=== PATIENT | female | born 1980 | race African-American/Black ===

== ENCOUNTER 2018-11-05 08:40 | Inpatient (IN) | payer BC, OTHER ==
[~2018-11-05 08:40] MED LIST: CITRIC ACID/SODIUM CITRATE 30 ML UNIT-DOSE CUP PO ONE; ELECTROLYTE-148 SOLN 1,000 ML IV ONE
[2018-11-05] MEDS ORDERED: ELECTROLYTE-148 SOLN 1,000 ML IV SCH (09:39)
[2018-11-05 09:47] VITALS: BMI 38.9
[2018-11-05] MEDS ORDERED: morphine SULFATE/PF 0.5 MG/ML (2cc Syringe - QUVA) ONE (10:09)
[2018-11-05] MEDS ORDERED: OXYTOCIN 20 UNITS in 0.9% NS 40 UNIT/2,000 ML INFUS.BAG IV ONE (10:25)
[2018-11-05] MEDS ORDERED: METHYLERGONOVINE MALEATE 0.2 MG/1 ML AMP IM PRN (10:44)
[2018-11-05 11:47] LABS: VENOUS PH 7.36 (7.31-7.41)
[2018-11-05 11:51] LABS: ARTERIAL BLD GAS O2 SATURATION 22.3 % (95-98); ARTERIAL BLOOD GAS pH 7.29 (7.35-7.45)
[2018-11-05 11:53] LABS: VENOUS PO2 25.9 mmHg (30-40)
--- NOTE | 2018-11-05 12:00 | HP ---
Past Medical History - Primary Care Physician PCP:: Wanda Florian - Admission Chief Complaint: Previous Myomectomy. previous section History of Present Illness: 38 yo P1 with breech presentation, previous myomectomy previous Section for repeat CS GBS negative History Source: Patient Limitations to Obtaining History: No Limitations - Past Medical History ...: 6 ...Para: 1 ...Term: 1 ...: 0 ...Spon : 4 ...Induced : 0 ...Multiple Gestation: 0 ...LMP: 02/19/18 ... Weeks Gestation by Dates: 36.6 ...EDC by Dates: 11/27/18 ...EDC by Sono: 11/21/18 - Past Surgical History Past Surgical History: Yes: Hx Myomectomy: Yes Hx Transabdominal Cerclage: No - Smoking History Smoking history: Never smoked Have you smoked in the past 12 months: No If you are a former smoker, when did you quit?: 2005 - Alcohol/Substance Use Hx Alcohol Use: No History of Substance Use: reports: None - Social History Usual Living Arrangement: Yes: With Spouse History of Recent Travel: No Home Medications - Allergies Allergies/Adverse Reactions: Allergies Allergy/AdvReac Type Severity Reaction Status Date / Time No Known Drug Allergies Allergy Verified 11/05/18 13:07 - Home Medications Home Medications: Ambulatory Orders Vits96/Iron Fum/Folic [ Tablet] 1 each PO DAILY 11/05/18 Review of Systems - Review of Systems Constitutional: reports: No Symptoms Eyes: reports: No Symptoms HENT: reports: No Symptoms Neck: reports: No Symptoms Cardiovascular: reports: No Symptoms Respiratory: reports: No Symptoms Gastrointestinal: reports: No Symptoms Genitourinary: reports: No Symptoms Breasts: reports: No Symptoms Reported Musculoskeletal: reports: No Symptoms Integumentary: reports: No Symptoms Neurological: reports: No Symptoms Endocrine: reports: No Symptoms Hematology/Lymphatic: reports: No Symptoms Psychiatric: reports: No Symptoms Physical Exam - Maternity Vital Signs: Vital Signs Temperature 98.2 F 11/05/18 09:15 Pulse Rate 77 11/05/18 09:15 Respiratory Rate 18 11/05/18 09:15 Blood Pressure 133/82 11/05/18 09:15 O2 Sat by Pulse Oximetry (%) Constitutional: Yes: Well Nourished, No Distress Eyes: Yes: WNL Neck: Yes: WNL Cardiovascular: Yes: WNL Hemorrhage Risk Assessment - Risk Factors Medium Risk Factors: Yes: Prior , uterine surgery,or multiple laparotomies Risk Score: 1 Risk Level: Medium Risk Problem List - Problems (1) Status post primary low transverse section Code(s): Z98.89 - OTHER SPECIFIED POSTPROCEDURAL STATES * DO NOT USE * (2) Previous delivery, antepartum Code(s): O34.219 - MATERNAL CARE FOR UNSP TYPE SCAR FROM PREVIOUS DEL (3) H/O myomectomy Code(s): Z98.89 - OTHER SPECIFIED POSTPROCEDURAL STATES * DO NOT USE * Assessment/Plan previous momectomy previous Section iup at 37.5 weeks obesity GBS negative Cat 1 with contractions Plan Repeat Section
[2018-11-05] MEDS: OXYTOCIN 20 UNITS in 0.9% NS 20 UNIT/1,000 ML INFUS.BAG IV SCH (12:05)
--- NOTE | 2018-11-05 12:09 | OP ---
Operative Note - Note: Operative Date: 11/05/18 Pre-Operative Diagnosis: Dede Breech. Previous Myomectomy. Previous Section Operation: Repeat Section Findings: Live female delivered in dede breech Post-Operative Diagnosis: Same as Pre-op Surgeon: Wanda Florian Lubrication Supervisor: Daniel Vera Anesthesia: Spinal Estimated Blood Loss (mls): 600 Operative Report Dictated: Yes
[2018-11-05] MEDS ORDERED: OXYTOCIN 20 UNITS in 0.9% NS 20 UNIT/1,000 ML INFUS.BAG IV SCH (12:15)
--- NOTE | 2018-11-05 12:55 | OP ---
DATE OF OPERATION: 11/05/2018 PREOPERATIVE DIAGNOSIS: Dede breech, intrauterine at 37-5/7 weeks, as well as previous myomectomy and previous section. OPERATION: Repeat low-transverse section. POSTOPERATIVE DIAGNOSIS: Dede breech, intrauterine at 37-5/7 weeks, as well as previous myomectomy and previous section, life female . SURGEON: Wanda Florian MD RISK REDUCTION COUNSELOR: VINICIO Ramírez ANESTHESIA: Spinal. ANESTHESIOLOGIST: Stacy Strange MD PROCEDURE: The patient was taken to the operating room, placed in supine position, prepped and draped in the usual sterile fashion after spinal anesthesia had been given. A Pfannenstiel skin incision was made through the patient's previous scar. Cautery was then used to go through the layers of abdominal wall to the level of the fascia. Fascia was cut in the midline and cautery was then used to open the fascia in smiling fashion. Kochers then used to bluntly and sharply dissect the rectus muscle at the fascia, muscles split in the midline. Peritoneal cavity was entered and carried up and downward. Bladder retractors then placed. Scalpel was then used to make a low transverse uterine incision. The incision was carried up using bandage scissors. A dede breech position was noted. A breech delivery was done. Shoulders were delivered without difficulty. Head was delivered without difficulty. DeLee cord clamping was done. Cord blood sampling was done, cord pH sampling was done. Infant was handed to auto technician mechanic. Placenta was manually extracted from the uterus. Uterus exteriorized and cleaned with clean lap pads. Uterine incision then closed using 0 Biosyn suture, first layer in continuous interlocking, second layer imbricating the first layer. Tubes and ovaries were noted to be normal. Uterus interiorized. Abdominal cavity cleaned with clean lap pads. Peritoneum closed using 0 Biosyn suture. Fascia was then closed using 0 Vicryl suture in 2 parts. Subcutaneous was approximated using interrupted sutures using 0 Biosyn suture. Skin was then closed using 3-0 Vicryl in subcuticular fashion. Wound was washed and dressed. Patient tolerated procedure well. Estimated blood loss 600 mL. Jaime [id number]
[2018-11-05] MEDS ORDERED: morphine SULFATE/PF 0.5 MG/ML (2cc Syringe - QUVA) SPIN ONE (14:33)
[2018-11-05] MEDS ORDERED: ONDANSETRON 4 MG/2 ML VIAL IVPUSH PRN (14:33)
[2018-11-05] MEDS ORDERED: IBUPROFEN 800 MG/8 ML IJ IVPB PRN (17:10)
[2018-11-05] MEDS: SIMETHICONE 80 MG TAB.CHEW (FP) PO PRN (19:23)
[2018-11-06 08:08] LABS: BASO % 0.3 % (0-2.0); EOS % 0.9 % (0-4.5); HEMATOCRIT 33.3 % (32.4-45.2); HEMOGLOBIN 11.4 GM/dL (10.7-15.3); LYMPH % 6.1 % (8-40); MCH 29.9 pg (25.7-33.7); MCHC 34.3 g/dl (32.0-36.0); MEAN PLT VOLUME 8.9 fl (7.5-11.1); MONO % 6.1 % (3.8-10.2); NEUT % 86.6 % (42.8-82.8); PLATELET COUNT 238 K/MM3 (134-434); RBC 3.83 M/mm3 (3.60-5.2); RDW 13.5 % (11.6-15.6)
[2018-11-06] MEDS: SIMETHICONE 80 MG TAB.CHEW (FP) PO PRN ×3 (09:15→21:09)
[2018-11-06] MEDS: IBUPROFEN 600 MG TABLET (FP) PO PRN (09:15)
[2018-11-06] MEDS: oxyCODONE HCL 5 MG TABLET PO PRN ×3 (09:16→21:09)
--- NOTE | 2018-11-06 10:15 | PN ---
Progress Note, Physician Chief Complaint: POD1 s/p c/s with spinal and DM - Current Medication List Current Medications: Active Medications Acetaminophen (Tylenol -) 650 mg PO Q6H PRN PRN Reason: FEVER Bisacodyl (Dulcolax Suppository -) 10 mg RC PRN PRN PRN Reason: CONSTIPATION Diphenhydramine HCl (Benadryl Injection -) 25 mg IVPUSH Q4H PRN PRN Reason: Pruritis Oxytocin/Sodium Chloride (Normal Saline+20 Units Oxytocin -) 20 unit in 1,000 mls @ 125 mls/hr IV ASDIR GABI Last Admin: 11/05/18 12:05 Dose: 125 mls/hr Ibuprofen (Motrin -) 600 mg PO Q4H PRN PRN Reason: PAIN LEVEL 1 - 3 Last Admin: 11/06/18 09:15 Dose: 600 mg Ibuprofen (Caldolor Injection -) 800 mg IVPB Q6H PRN PRN Reason: FEVER Last Admin: 11/05/18 21:13 Dose: 800 mg Methylergonovine Maleate (Methergine Injection -) 0.2 mg IM Q4H PRN PRN Reason: Excessive Bleeding (L&D) Ondansetron HCl (Zofran Injection) 4 mg IVPUSH Q4H PRN PRN Reason: NAUSEA Oxycodone HCl (Roxicodone -) 5 mg PO Q4H PRN PRN Reason: PAIN LEVEL 4 - 6 Last Admin: 11/06/18 09:16 Dose: 5 mg Oxycodone HCl (Roxicodone -) 10 mg PO Q4H PRN PRN Reason: PAIN LEVEL 7 - 10 Senna/Docusate Sodium (Pericolace -) 2 tablet PO HS PRN PRN Reason: CONSTIPATION Simethicone (Mylicon -) 80 mg PO Q4H PRN PRN Reason: GAS Last Admin: 11/06/18 09:15 Dose: 80 mg - Objective Vital Signs: Vital Signs Temperature 99.0 F 11/06/18 05:40 Pulse Rate 80 11/06/18 05:40 Respiratory Rate 17 11/06/18 08:00 Blood Pressure 136/72 11/06/18 05:40 O2 Sat by Pulse Oximetry (%) 100 11/05/18 13:20 Labs: CBC, BMP 11/06/18 06:51 Assessment/Plan Doing well, no back pain, COVARRUBIAS, minor incisional pain; no anesthetic issues/ complications noted.
[2018-11-06] MEDS ORDERED: BISACODYL 10 MG SUPP.RECT RC PRN (10:44)
[2018-11-06] MEDS: OXYTOCIN 20 UNITS in 0.9% NS 20 UNIT/1,000 ML INFUS.BAG IV SCH (12:14)
[2018-11-06] MEDS: ACETAMINOPHEN 325 MG TABLET (FP) PO PRN ×2 (16:49→21:10)
--- NOTE | 2018-11-06 18:51 | PN ---
Post Note - Post Date of Delivery: 11/05/18 Post Day: 1 Vital Signs: Vital Signs - 24 hr 11/05/18 11/05/18 11/05/18 19:00 20:00 21:00 Temperature Pulse Rate Respiratory 18 18 18 Rate Blood Pressure 11/05/18 11/05/18 11/05/18 21:44 22:00 23:00 Temperature 98.2 F Pulse Rate 70 Respiratory 18 18 18 Rate Blood Pressure 139/69 11/06/18 11/06/18 11/06/18 00:00 01:00 01:38 Temperature 98.6 F Pulse Rate 73 Respiratory 18 18 18 Rate Blood Pressure 131/70 11/06/18 11/06/18 11/06/18 02:00 03:00 04:00 Temperature Pulse Rate Respiratory 18 18 18 Rate Blood Pressure 11/06/18 11/06/18 11/06/18 05:00 05:40 06:00 Temperature 99.0 F Pulse Rate 80 Respiratory 18 18 18 Rate Blood Pressure 136/72 11/06/18 11/06/18 11/06/18 07:00 08:00 09:00 Temperature Pulse Rate Respiratory 17 17 18 Rate Blood Pressure 11/06/18 11/06/18 11/06/18 10:00 11:00 16:30 Temperature 99.4 F 100.4 F H Pulse Rate 87 Respiratory 18 18 Rate Blood Pressure 148/78 11/06/18 18:31 Temperature 99.7 F H Pulse Rate Respiratory Rate Blood Pressure Labs: Laboratory Results - last 24 hr 11/06/18 06:51 WBC 11.0 H RBC 3.83 Hgb 11.4 Hct 33.3 MCV 87.0 MCH 29.9 MCHC 34.3 RDW 13.5 Plt Count 238 D MPV 8.9 Absolute Neuts (auto) 9.5 H Neutrophils % 86.6 H Lymphocytes % 6.1 L D Monocytes % 6.1 Eosinophils % 0.9 Basophils % 0.3 Nucleated RBC % 0 - Subjective Subjective: No Complaints, Voiding - Objective Afebrile: No Breast: Not engorged Abdomen: Soft, Non-tender Uterus: Fundus firm Vagina: Scant lochia Extremities: Non-tender - Assessment/Plan (1) Status post primary low transverse section Assessment: Other (POD1 Low grade temp SP Repeat CS due to myomectomy and previous CS) Plan: Routine Care (Ceftriaxone 250 IM daily)
[2018-11-06] MEDS ORDERED: cefTRIAXone SODIUM 1 GM VIAL IM ONE (19:00)
[2018-11-06] MEDS ORDERED: ZOLPIDEM TARTRATE 5 MG TABLET PO ONE (20:53)
[2018-11-06] MEDS: SENNOSIDES/DOCUSATE COMBO (SENNA PLUS) TABLET (UD) PO PRN (21:09)
[2018-11-07] MEDS ORDERED: ELECTROLYTE-148 SOLN 1,000 ML IV SCH ×2 (02:00→02:30)
--- NOTE | 2018-11-07 02:26 | PN ---
Progress Note (short form) - Note Progress Note: Nurse called due to pt c/o of shivering but afebrile Pt was givren ceftriaxone after low grade temp earlier with tylenol Pt with multiple attempts at spinal prior to CS Anesthesia called for consult to follow Will place IV fluids and continue antibiotics Problem List - Problems (1) Status post primary low transverse section Code(s): Z98.89 - OTHER SPECIFIED POSTPROCEDURAL STATES * DO NOT USE * (2) Previous delivery, antepartum Code(s): O34.219 - MATERNAL CARE FOR UNSP TYPE SCAR FROM PREVIOUS DEL (3) H/O myomectomy Code(s): Z98.89 - OTHER SPECIFIED POSTPROCEDURAL STATES * DO NOT USE *
--- NOTE | 2018-11-07 02:35 | PN ---
Progress Note (short form) - Note Progress Note: Asked to see patient due to low grade temperature (100.4F earlier in day). Pt is POD1 s/p c/section. Notably, the anesthesiologist required multiple attempts before finally securing the spinal yesterday prior to the section; there is concern that this exposure may possibly be the etiology of the fever. Upon examination, her lumbar spine area appeared grossly normal to inspection and palpation. There was no edema, discoloration, unusual warmth or any evidence of a localized infection/abscess at this point. She is not febrile at this time, nor does she complain of any back pain or headache, nor is there any pain upon palpation of the involved area. Agree with plan to prophylactically add antibiotics for now - rocephin IV was started a few hours earlier. Will follow.
[2018-11-07] MEDS ORDERED: CEFAZOLIN 2 GM/D5W 2 GM/50 ML ML IVPB ONE (03:15)
[2018-11-07 07:31] LABS: BASO % 0.4 % (0-2.0); EOS % 0.4 % (0-4.5); HEMATOCRIT 33.6 % (32.4-45.2); HEMOGLOBIN 11.6 GM/dL (10.7-15.3); LYMPH % 12.6 % (8-40); MCH 29.9 pg (25.7-33.7); MCHC 34.5 g/dl (32.0-36.0); MEAN CELL VOLUME 86.7 fl (80-96); MEAN PLT VOLUME 8.7 fl (7.5-11.1); MONO % 8.3 % (3.8-10.2); NEUT % 78.3 % (42.8-82.8); PLATELET COUNT 295 K/MM3 (134-434); RBC 3.88 M/mm3 (3.60-5.2); RDW 13.4 % (11.6-15.6); WHITE BLOOD COUNT 12.1 K/mm3 (4.0-10.0)
[2018-11-07] MEDS ORDERED: CEFAZOLIN 2 GM/D5W 2 GM/50 ML ML IVPB SCH (10:00)
[2018-11-07] MEDS: AMOX TR/POT CLAV 500MG/125MG TABLETS (FP) PO SCH ×2 (11:15→21:32)
--- NOTE | 2018-11-07 12:42 | PN ---
Progress Note (SOAP) - Subjective Chief Complaint: Pt doing better - Current Medications Current Medications: Active Medications Acetaminophen (Tylenol -) 650 mg PO Q6H PRN PRN Reason: FEVER Last Admin: 11/06/18 21:10 Dose: 650 mg Amoxicillin/Clavulanate Potassium (Augmentin - 500mg Tablet) 1 tab PO BID GABI Bisacodyl (Dulcolax Suppository -) 10 mg RC PRN PRN PRN Reason: CONSTIPATION Diphenhydramine HCl (Benadryl Injection -) 25 mg IVPUSH Q4H PRN PRN Reason: Pruritis Oxytocin/Sodium Chloride (Normal Saline+20 Units Oxytocin -) 20 unit in 1,000 mls @ 125 mls/hr IV ASDIR GABI Last Admin: 11/06/18 12:14 Dose: Not Given Parenteral Electrolytes (Plasma-Lyte 148 -) 1,000 mls @ 125 mls/hr IV ASDIR [facility] Ibuprofen (Motrin -) 600 mg PO Q4H PRN PRN Reason: PAIN LEVEL 1 - 3 Last Admin: 11/06/18 09:15 Dose: 600 mg Ibuprofen (Caldolor Injection -) 800 mg IVPB Q6H PRN PRN Reason: FEVER Last Admin: 11/05/18 21:13 Dose: 800 mg Methylergonovine Maleate (Methergine Injection -) 0.2 mg IM Q4H PRN PRN Reason: Excessive Bleeding (L&D) Ondansetron HCl (Zofran Injection) 4 mg IVPUSH Q4H PRN PRN Reason: NAUSEA Oxycodone HCl (Roxicodone -) 5 mg PO Q4H PRN PRN Reason: PAIN LEVEL 4 - 6 Last Admin: 11/06/18 21:09 Dose: 5 mg Oxycodone HCl (Roxicodone -) 10 mg PO Q4H PRN PRN Reason: PAIN LEVEL 7 - 10 Senna/Docusate Sodium (Pericolace -) 2 tablet PO HS PRN PRN Reason: CONSTIPATION Last Admin: 11/06/18 21:09 Dose: 2 tablet Simethicone (Mylicon -) 80 mg PO Q4H PRN PRN Reason: GAS Last Admin: 11/06/18 21:09 Dose: 80 mg - Objective Vital Signs: Vital Signs Temperature 98.8 F 11/07/18 10:00 Pulse Rate 93 H 11/07/18 10:00 Respiratory Rate 18 11/07/18 10:00 Blood Pressure 142/85 11/07/18 10:00 O2 Sat by Pulse Oximetry (%) 100 11/05/18 13:20 Constitutional: Yes: Well Nourished, No Distress Cardiovascular: Yes: WNL Respiratory: Yes: WNL ....Post : Yes: Uterus firm, Uterus non-tender Breast(s): Yes: WNL Musculoskeletal: Yes: WNL Extremities: Yes: WNL Edema: No Integumentary: Yes: WNL Wound/Incision: Yes: Clean/Dry, Well Approximated Neurological: Yes: WNL, Alert, Oriented Labs Lab Results: CBC, BMP 11/07/18 06:30 Problem List - Problems (1) Status post primary low transverse section Code(s): Z98.89 - OTHER SPECIFIED POSTPROCEDURAL STATES * DO NOT USE * (2) Previous delivery, antepartum Code(s): O34.219 - MATERNAL CARE FOR UNSP TYPE SCAR FROM PREVIOUS DEL (3) H/O myomectomy Code(s): Z98.89 - OTHER SPECIFIED POSTPROCEDURAL STATES * DO NOT USE * Assessment/Plan previous myomectomy previous Section POD2 obesity Shivers afebrile Plan IV fluids OOB will start antibiotics
[2018-11-07] MEDS: oxyCODONE HCL 5 MG TABLET PO PRN ×2 (13:03→18:15)
[2018-11-07] MEDS: SIMETHICONE 80 MG TAB.CHEW (FP) PO PRN ×2 (13:03→18:17)
[2018-11-07] MEDS: IBUPROFEN 600 MG TABLET (FP) PO PRN ×2 (13:05→18:16)
--- NOTE | 2018-11-07 16:16 | PN ---
HC Provider Note Provider Note: Anesthesia Post-op Note Pt s/p spinal for c/section Pt sitting in bed, comfortable no acute distress -- reports continued low grade temp but denies any focal signs for PDPH, epidural abscess, or meningitis Namely pt denies h/a, n/v, no severe back pain, no nucal rigidity or photophobia , no bowel or bladder incontinence Pt is ambulating well VSS no apparent anesthesia complications Hayde Montero.
[2018-11-07] MEDS: SENNOSIDES/DOCUSATE COMBO (SENNA PLUS) TABLET (UD) PO PRN (21:33)
[2018-11-08] MEDS: SIMETHICONE 80 MG TAB.CHEW (FP) PO PRN ×3 (01:59→17:30)
[2018-11-08] MEDS: ACETAMINOPHEN 325 MG TABLET (FP) PO PRN ×2 (01:59→08:59)
[2018-11-08] MEDS: IBUPROFEN 600 MG TABLET (FP) PO PRN ×3 (02:00→17:30)
[2018-11-08 08:17] LABS: BASO % 0.3 % (0-2.0); EOS % 2.2 % (0-4.5); HEMATOCRIT 32.4 % (32.4-45.2); HEMOGLOBIN 11.3 GM/dL (10.7-15.3); LYMPH % 12.9 % (8-40); MCH 30.4 pg (25.7-33.7); MCHC 34.9 g/dl (32.0-36.0); MEAN CELL VOLUME 87.1 fl (80-96); MEAN PLT VOLUME 8.4 fl (7.5-11.1); MONO % 7.2 % (3.8-10.2); NEUT % 77.4 % (42.8-82.8); PLATELET COUNT 284 K/MM3 (134-434); RBC 3.72 M/mm3 (3.60-5.2); RDW 13.6 % (11.6-15.6); WHITE BLOOD COUNT 10.2 K/mm3 (4.0-10.0)
--- NOTE | 2018-11-08 09:52 | PN ---
Progress Note (SOAP) - Subjective Chief Complaint: Pt doing better - Current Medications Current Medications: Active Medications Acetaminophen (Tylenol -) 650 mg PO Q6H PRN PRN Reason: FEVER Last Admin: 11/08/18 08:59 Dose: 650 mg Amoxicillin/Clavulanate Potassium (Augmentin - 500mg Tablet) 1 tab PO BID GABI Last Admin: 11/07/18 21:32 Dose: 1 tab Bisacodyl (Dulcolax Suppository -) 10 mg RC PRN PRN PRN Reason: CONSTIPATION Last Admin: 11/07/18 13:27 Dose: 10 mg Diphenhydramine HCl (Benadryl Injection -) 25 mg IVPUSH Q4H PRN PRN Reason: Pruritis Oxytocin/Sodium Chloride (Normal Saline+20 Units Oxytocin -) 20 unit in 1,000 mls @ 125 mls/hr IV ASDIR GABI Last Admin: 11/06/18 12:14 Dose: Not Given Parenteral Electrolytes (Plasma-Lyte 148 -) 1,000 mls @ 125 mls/hr IV ASDIR GABI Metronidazole (Flagyl 500mg Premixed Ivpb -) 500 mg in 100 mls @ 100 mls/hr IVPB Q8H-IV GABI Last Admin: 11/08/18 01:55 Dose: 100 mls/hr Ibuprofen (Motrin -) 600 mg PO Q4H PRN PRN Reason: PAIN LEVEL 1 - 3 Last Admin: 11/08/18 08:59 Dose: 600 mg Ibuprofen (Caldolor Injection -) 800 mg IVPB Q6H PRN PRN Reason: FEVER Last Admin: 11/05/18 21:13 Dose: 800 mg Methylergonovine Maleate (Methergine Injection -) 0.2 mg IM Q4H PRN PRN Reason: Excessive Bleeding (L&D) Ondansetron HCl (Zofran Injection) 4 mg IVPUSH Q4H PRN PRN Reason: NAUSEA Oxycodone HCl (Roxicodone -) 5 mg PO Q4H PRN PRN Reason: PAIN LEVEL 4 - 6 Last Admin: 11/07/18 18:15 Dose: 5 mg Oxycodone HCl (Roxicodone -) 10 mg PO Q4H PRN PRN Reason: PAIN LEVEL 7 - 10 Last Admin: 11/07/18 13:03 Dose: 10 mg Senna/Docusate Sodium (Pericolace -) 2 tablet PO HS PRN PRN Reason: CONSTIPATION Last Admin: 11/07/18 21:33 Dose: 2 tablet Simethicone (Mylicon -) 80 mg PO Q4H PRN PRN Reason: GAS Last Admin: 11/08/18 08:59 Dose: 80 mg - Objective Vital Signs: Vital Signs Temperature 98.3 F 11/07/18 22:00 Pulse Rate 81 11/07/18 22:00 Respiratory Rate 18 11/07/18 22:00 Blood Pressure 133/78 11/07/18 22:00 O2 Sat by Pulse Oximetry (%) 100 11/05/18 13:20 Constitutional: Yes: Well Nourished, No Distress Neck: Yes: WNL Cardiovascular: Yes: WNL Respiratory: Yes: WNL ....Post : Yes: Uterus firm, Uterus non-tender Breast(s): Yes: WNL Musculoskeletal: Yes: WNL Extremities: Yes: WNL Labs Lab Results: CBC, BMP 11/08/18 07:35 Problem List - Problems (1) Status post primary low transverse section Code(s): Z98.89 - OTHER SPECIFIED POSTPROCEDURAL STATES * DO NOT USE * (2) Previous delivery, antepartum Code(s): O34.219 - MATERNAL CARE FOR UNSP TYPE SCAR FROM PREVIOUS DEL (3) H/O myomectomy Code(s): Z98.89 - OTHER SPECIFIED POSTPROCEDURAL STATES * DO NOT USE * Assessment/Plan previous myomectomy previous Section POD3 obesity afebrile Plan IV fluids OOB change to po antibiotics
[2018-11-08] MEDS: AMOX TR/POT CLAV 500MG/125MG TABLETS (FP) PO SCH ×2 (10:00→21:02)
[2018-11-08] MEDS ORDERED: metroNIDAZOLE 250 MG TABLET PO SCH (10:00)
[2018-11-08] MEDS: metroNIDAZOLE 250 MG TABLET PO SCH ×2 (12:18→21:02)
[2018-11-08] MEDS: oxyCODONE HCL 5 MG TABLET PO PRN (17:31)
[2018-11-08] MEDS: SENNOSIDES/DOCUSATE COMBO (SENNA PLUS) TABLET (UD) PO PRN (21:01)
[2018-11-09 09:18] VITALS: BP 136/87; PULSE 82; TEMP 98.5
[2018-11-09] MEDS: metroNIDAZOLE 250 MG TABLET PO SCH (09:42)
[2018-11-09] MEDS: AMOX TR/POT CLAV 500MG/125MG TABLETS (FP) PO SCH (09:43)
--- NOTE | 2018-11-09 11:05 | DS ---
Physical Exam-SPLICER HELPER Vital Signs: Vital Signs Temperature 98.5 F 11/09/18 09:15 Pulse Rate 82 11/09/18 09:15 Respiratory Rate 18 11/09/18 09:15 Blood Pressure 136/87 11/09/18 09:15 O2 Sat by Pulse Oximetry (%) 100 11/05/18 13:20 Constitutional: Yes: Well Nourished, No Distress Respiratory: Yes: WNL Gastrointestinal: Yes: WNL, Soft ....Post : Yes: Uterus firm, Uterus non-tender Breast(s): Yes: WNL Musculoskeletal: Yes: WNL Extremities: Yes: WNL Edema: Yes Edema: LLE: Trace, RLE: Trace Wound/Incision: Yes: Steri Strips, Open to air, Dressing Dry and Intact Neurological: Yes: WNL, Alert, Oriented Labs: CBC, BMP 11/08/18 07:35 Delivery - Delivery Section: Low Flap Transverse Type of Anesthesia: Spinal Episiotomy/Laceration: None EBL (cc): 600 Delivery, Single - Stages of Labor Date of Delivery: 11/05/18 Time of Delivery: 11:23 Time Placenta Delivered: 11:24 - Condition of Restaurant Line Cook/Tourist Information Assistant Present: Yes Name: Nancy Patel Gender: Female Weight: 7 lb 8 oz Total Hours ROM (Hrs/Mins): 0/2 - 1 Minute Total Score: 9 5 Minutes Total Score: 9 - [place] Feeding Plan Initial Plan: Elected not to breastfeed exclusively throughout hospitalization Discharge Summary Reason For Visit: REPEAT Previous myomectomy Current Active Problems Previous delivery, antepartum (Acute) Procedures: Principal: Repeat Section low transverse - Instructions Diet, Activity, Other Instructions: Physical activity Resume your normal everyday activity as tolerated no heavy lifting or exercise until seen by your surgeon. You may walk unlimited issac of and climb stairs. You may resume driving the car when you feel safe and comfortable behind the wheel. No sexual activity as instructed. Wound care If you have a bandage, leave it on, and keep dry for 48-72 hours. After that time discard the outer bandage. If they are tapes on the skin under the out of bandage leave them in place. They will peel off in the next 7 to 10 days. Do Not Peel them off. You may shower the day after surgery. If there are tapes present on the skin, you may shower over them. Diet There are no dietary restrictions. Eat healthy, high-fiber foods. Drink 6 to 8 glasses of liquid each day. This will assist in keeping your bowels are regular. Pain management You may take Tylenol or acetaminophen or Ibuprofen (for example, Motrin, Advil etc.) from my pain prescription medication is ordered should be taken as prescribed for moderate to severe pain. Call MD for any of the following: Severe pain not relieved by medication Fever of 101 or higher Excessive bleeding or drainage on dressing Inability to urinate Disposition: HOME - Home Medications Comprehensive Discharge Medication List: Ambulatory Orders Vits96/Iron Fum/Folic [ Tablet] 1 each PO DAILY 11/05/18 Amoxicillin/Potassium Clav [Augmentin 500-125 Tablet] 1 each PO BID #10 tablet 11/08/18 metroNIDAZOLE [Flagyl -] 500 mg PO DAILY #14 tablet 11/08/18 Ibuprofen [Motrin -] 600 mg PO QID #28 tablet 11/09/18 Oxycodone HCl/Acetaminophen [Oxycodone-Acetaminophen 5-325] 1 each PO QID PRN # 20 tablet MDD 6 11/09/18
[2018-11-09] MEDS: OXYTOCIN 20 UNITS in 0.9% NS 20 UNIT/1,000 ML INFUS.BAG IV SCH (12:18)
--- NOTE | 2018-11-11 19:33 | PATH ---
Surgical Pathology Report Patient Name: ADWOA ANTONIO Med. Rec. #: [id number] /Age/Gender: 1980 (Age: 38) / F Account: [id number] Location: [facility] OBS/FINE PATCHER Taken: 11/05/2018 Received: 11/06/2018 Reported: 11/11/2018 Physicians: Wanda Florian M.D. Specimen(s) Received PLACENTA Clinical History , 37.5 weeks for repeat Breech Final Diagnosis PLACENTA, SECTION: 547 G THIRD TRIMESTER PLACENTA WITH TRIVASCULAR UMBILICAL CORD AND UNREMARKABLE PLACENTAL MEMBRANES. Electronically Signed Yazmin Montez M.D. Gross Description The specimen is received fresh labeled placenta and is a 547 gram, 15.5 x 15.0 x 3.3 cm. placenta with attached membranes and umbilical cord. The attached membranes are duran, translucent with focal opacities and display focal circumarginate insertion. The umbilical cord measures 9.5 cm. in length and averages 0.9 cm. in diameter. The cord inserts eccentrically, 4.5 cm. to the nearest margin. No true knots or strictures are identified. Cut surface of the umbilical cord reveals 3 vessels. The surface is ibarra blue with moderate fibrin deposition and appropriate caliber vessels. The maternal surface is red-brown with focal defects. Sectioning reveals red-brown, spongy parenchyma. No lesions are identified. Inside Sales Advertising Executive sections are submitted in three cassettes as follows: 1- membrane rolls and umbilical cord; 2-3- full thickness sections of placenta. 11/06/2018 [facility]2018
== END 2018-11-09 12:50 | disposition home or self-care (01) | DRG 788 ==
LOC: JLDR 08:40 → J3W 14:36
PROVIDERS: ADMIT Obstetrics & Gynecology; ATTEND Obstetrics & Gynecology
PROC: 10D00Z1 Extraction of Products of Conception, Low, Open Approach (ICD-10-PCS; principal; 2018-11-05)
PROC: 3E0334Z Introduction of Serum, Toxoid and Vaccine into Peripheral Vein, Percutaneous Approach (ICD-10-PCS; 2018-11-05)
DX: O32.1XX0 Maternal care for breech presentation, not applicable or unspecified (principal); O34.211 Maternal care for low transverse scar from previous cesarean delivery; N85.8 Other specified noninflammatory disorders of uterus; O99.214 Obesity complicating childbirth; Z3A.37 37 weeks gestation of pregnancy; Z29.13 Encounter for prophylactic Rho(D) immune globulin; Z37.0 Single live birth
CPT/HCPCS: 36415; 36600; 82803; 85025; 85461; 86999; 88307-TC